=== PATIENT | female | born 1995 | race Two or more races ===

== ENCOUNTER 2022-05-16 10:16 | Emergency (ER) | payer OTHER ==
[~2022-05-16] VITALS: Ht 154.9 cm; Wt 86.2 kg
[2022-05-16 10:26] VITALS: BP 132/69
[2022-05-16] MEDS ORDERED: NEOM10DR11 RIGHT EAR (11:09)
[2022-05-16] MEDS ORDERED: AMOX-430 PO (11:09)
== END 2022-05-16 11:15 | disposition home or self-care (01) ==
LOC: ER 10:23
DX: H66.91 Otitis media, unspecified, right ear (principal); H60.91 Unspecified otitis externa, right ear; Z60.2 Problems related to living alone